=== PATIENT | male | born 1975 | race Caucasian/White ===

== ENCOUNTER 2019-01-05 21:00 | Inpatient (IN) | payer OTHER ==
[~2019-01-05] VITALS: Ht 177.8 cm; Wt 80.5 kg
[2019-01-05] MEDS ORDERED: SODIUM CHLORIDE 0.9% 1,000 ML IV ONE (21:24)
[2019-01-05] MEDS ORDERED: MORPHINE SULFATE 4 MG/ML CPJ (NOT FOR IM USE) IV NR (22:02)
[2019-01-05] MEDS ORDERED: ONDANSETRON HCL 4MG/2ML INJ IV NR (22:02)
[2019-01-05] MEDS: SODIUM CHLORIDE 0.9% 1,000 ML IV NR ×2 (22:02→23:03)
[2019-01-05] MEDS ORDERED: DIAZEPAM 5 MG/ML 2ML CPJ IV NR (22:15)
[2019-01-05 22:19] LABS: BASOPHILS % 0.6 % (0.0-2.0); EOSINOPHILS % 2.2 % (0.0-5.0); HEMATOCRIT. 46.8 % (42.0-52.0); LYMPHOCYTES % 42.5 % (20.0-50.0); MEAN CORPUSCULAR HEMOGLOBIN 31.6 pg (28.0-32.0); MEAN CORPUSCULAR VOLUME 92.1 fL (80.0-94.0); MEAN PLATELET VOLUME 7.5 fl (7.4-10.4); MONOCYTES % 10.8 % (2.0-8.0); NEUTROPHILS % 43.9 % (40.0-76.0); PLATELET 172 x1000/uL (130-400); RED BLOOD CELL COUNT 5.08 mill/uL (4.7-6.1); RED CELL DISTRIBUTION WIDTH 15.1 % (11.6-14.6)
[2019-01-05 22:24] LABS: CHLORIDE 99 mEq/L (98-107)
[2019-01-05 22:28] LABS: ETHANOL BLOOD 247 mg/dL
[2019-01-06] MEDS ORDERED: MORPHINE SULFATE 4 MG/ML CPJ (NOT FOR IM USE) IV ONE (00:30)
[2019-01-06] MEDS ORDERED: DIAZEPAM 5 MG/ML 2ML CPJ IV ONE (00:30)
[2019-01-06] MEDS ORDERED: IOHEXOL-300 100 ML BOTTLE ONE (01:59)
[2019-01-06] MEDS ORDERED: POTASSIUM CHLORIDE 20MEQ TABLET SR PO ONE (04:30)
[2019-01-06 04:40] VITALS: BP 95/73
[2019-01-06] MEDS ORDERED: XAR15 MT (05:14)
[2019-01-06] MEDS ORDERED: GABA-531 PO (05:14)
[2019-01-06] MEDS: CHLORDIAZEPOXIDE 25MG CAPSULE PO SCH ×3 (07:00→21:09)
[2019-01-06] MEDS ORDERED: OMEPRAZOLE 20MG CAPSULE EXTENDED RELEASE PO SCH (07:20)
[2019-01-06 07:51] LABS: BASOPHILS % 0.3 % (0.0-2.0); EOSINOPHILS % 2.2 % (0.0-5.0); HEMATOCRIT. 43.6 % (42.0-52.0); HEMOGLOBIN. 14.8 g/dL (14.0-18.0); LYMPHOCYTES % 25.3 % (20.0-50.0); MEAN CORPUSCULAR HEMOGLOBIN 31.3 pg (28.0-32.0); MEAN CORPUSCULAR VOLUME 92.1 fL (80.0-94.0); MEAN PLATELET VOLUME 7.5 fl (7.4-10.4); MONOCYTES % 8.7 % (2.0-8.0); NEUTROPHILS % 63.5 % (40.0-76.0); PLATELET 178 x1000/uL (130-400); RED BLOOD CELL COUNT 4.74 mill/uL (4.7-6.1); RED CELL DISTRIBUTION WIDTH 14.9 % (11.6-14.6)
[2019-01-06 08:00] VITALS: BP 106/56
[2019-01-06 08:04] LABS: CHLORIDE 104 mEq/L (98-107)
[2019-01-06 08:12] LABS: LDL CHOLESTEROL 112 mg/dL (5-100)
[2019-01-06 08:13] LABS: CREATINE KINASE 385 IU/L (39-308)
[2019-01-06 08:14] LABS: CREATINE KINASE MB FRACTION 2.7 ng/mL (0.5-3.6); HDL CHOLESTEROL 48 mg/dL (40-59)
[2019-01-06 08:31] LABS: HEPATITIS B SURFACE ANTIGEN NEGATIVE
[2019-01-06] MEDS ORDERED: FOLIC ACID 1 MG, THIAMINE HCL 100 MG, MVI, ADULT NO.1 10 ML in DEXTROSE 5% WATER 1,000 ML IV ONE ×4 (09:00)
[2019-01-06 09:01] LABS: HEPATITIS A AB IGM NEGATIVE (NEGATIVE)
[2019-01-06] MEDS: THIAMINE HCL 100MG TABLET PO SCH (09:07)
[2019-01-06] MEDS: FOLIC ACID 1MG TABLET PO SCH (09:07)
[2019-01-06] MEDS: MULTIVITAMINS,THER W-MINERALS TABLET PO SCH (09:07)
[2019-01-06] MEDS: NICOTINE 14MG PATCH TD SCH (09:08)
[2019-01-06] MEDS: SODIUM CHLORIDE 0.9% 1,000 ML IV NR (09:09)
[2019-01-06] MEDS: MORPHINE SULFATE 2 MG/ML CPJ (NOT FOR IM USE) IV PRN ×3 (09:09→17:57)
[2019-01-06] MEDS: SODIUM CHLORIDE 0.9% 1,000 ML IV SCH ×2 (10:25→21:19)
[2019-01-06 12:00] VITALS: BP 124/72
[2019-01-06] MEDS ORDERED: POTASSIUM CHLORIDE 20MEQ TABLET SR PO SCH (13:15)
[2019-01-06] MEDS ORDERED: ACETAMINOPHEN 325MG TABLET PO PRN (13:15)
[2019-01-06] MEDS ORDERED: CLONIDINE 0.1MG TABLET PO PRN (13:15)
[2019-01-06] MEDS ORDERED: LORAZEPAM 0.5MG TABLET PO PRN (13:15)
[2019-01-06] MEDS ORDERED: HYDROCODONE/ACETAMINOPHEN 5/325MG TABLET PO PRN (13:15)
[2019-01-06] MEDS ORDERED: IPRATROPIUM/ALBUTEROL 0.5-3(2.5)MG/3ML NEB HHN PRN (13:15)
[2019-01-06 16:00] VITALS: BP 116/76
[2019-01-06] MEDS: SUCRALFATE 1G TABLET PO SCH ×2 (16:35→21:09)
[2019-01-06 17:12] LABS: INR 1.1
[2019-01-06 20:22] VITALS: BP 131/89
[2019-01-06] MEDS: LORAZEPAM 2MG/ML CPJ IV PRN (21:09)
[2019-01-06] MEDS: PANTOPRAZOLE 40MG DR TABLET PO SCH (21:09)
[2019-01-07 00:19] VITALS: BP 144/69
[2019-01-07 04:32] VITALS: BP 110/69
[2019-01-07] MEDS: MORPHINE SULFATE 2 MG/ML CPJ (NOT FOR IM USE) IV PRN ×4 (05:39→20:47)
[2019-01-07 06:07] LABS: BASOPHILS % 0.4 % (0.0-2.0); EOSINOPHILS % 3.4 % (0.0-5.0); HEMOGLOBIN. 14.6 g/dL (14.0-18.0); LYMPHOCYTES % 24.3 % (20.0-50.0); MEAN CORPUSCULAR HEMOGLOBIN 31.3 pg (28.0-32.0); MEAN PLATELET VOLUME 7.5 fl (7.4-10.4); MONOCYTES % 10.3 % (2.0-8.0); NEUTROPHILS % 61.6 % (40.0-76.0); PLATELET 149 x1000/uL (130-400); RED BLOOD CELL COUNT 4.68 mill/uL (4.7-6.1)
[2019-01-07 06:15] LABS: CHLORIDE 103 mEq/L (98-107)
[2019-01-07] MEDS: PANTOPRAZOLE 40MG DR TABLET PO SCH ×2 (06:37→21:48)
[2019-01-07] MEDS: SUCRALFATE 1G TABLET PO SCH ×4 (06:37→21:47)
[2019-01-07] MEDS: CHLORDIAZEPOXIDE 25MG CAPSULE PO SCH ×3 (06:37→21:47)
[2019-01-07 08:00] VITALS: BP 123/74
[2019-01-07] MEDS: FOLIC ACID 1MG TABLET PO SCH (08:08)
[2019-01-07] MEDS: THIAMINE HCL 100MG TABLET PO SCH (08:09)
[2019-01-07] MEDS: SODIUM CHLORIDE 0.9% 1,000 ML IV SCH ×2 (08:09→21:55)
[2019-01-07] MEDS: NICOTINE 14MG PATCH TD SCH (08:09)
[2019-01-07] MEDS: MULTIVITAMINS,THER W-MINERALS TABLET PO SCH (08:09)
[2019-01-07 12:00] VITALS: BP 127/77
[2019-01-07] MEDS ORDERED: POTASSIUM CHLORIDE 20MEQ TABLET SR PO ONE (12:45)
[2019-01-07 13:06] LABS: HIV SCREEN 4G Non Reactive (Non Reactive)
[2019-01-07] MEDS: LORAZEPAM 2MG/ML CPJ IV PRN ×3 (13:17→23:19)
[2019-01-07 16:00] VITALS: BP 132/82
[2019-01-07 20:10] VITALS: BP 131/82
[2019-01-07] MEDS ORDERED: QUETIAPINE FUMARATE 25MG TABLET PO SCH (21:00)
[2019-01-08 00:36] VITALS: BP 126/96
[2019-01-08] MEDS: MORPHINE SULFATE 2 MG/ML CPJ (NOT FOR IM USE) IV PRN ×5 (01:55→22:35)
[2019-01-08 04:00] VITALS: BP 109/70
[2019-01-08] MEDS: CHLORDIAZEPOXIDE 25MG CAPSULE PO SCH ×3 (06:28→21:42)
[2019-01-08] MEDS: SUCRALFATE 1G TABLET PO SCH ×4 (06:28→21:18)
[2019-01-08] MEDS: SODIUM CHLORIDE 0.9% 1,000 ML IV SCH ×3 (06:30→21:19)
[2019-01-08 07:05] LABS: CHLORIDE 108 mEq/L (98-107)
[2019-01-08 07:09] LABS: BASOPHILS % 0.5 % (0.0-2.0); EOSINOPHILS % 3.7 % (0.0-5.0); HEMATOCRIT. 42.3 % (42.0-52.0); HEMOGLOBIN. 14.1 g/dL (14.0-18.0); LYMPHOCYTES % 28.3 % (20.0-50.0); MEAN CORPUSCULAR VOLUME 92.7 fL (80.0-94.0); MEAN PLATELET VOLUME 7.9 fl (7.4-10.4); MONOCYTES % 8.9 % (2.0-8.0); NEUTROPHILS % 58.6 % (40.0-76.0); PLATELET 150 x1000/uL (130-400); RED BLOOD CELL COUNT 4.56 mill/uL (4.7-6.1); RED CELL DISTRIBUTION WIDTH 15.2 % (11.6-14.6)
[2019-01-08 08:00] VITALS: BP 124/87
[2019-01-08] MEDS: FOLIC ACID 1MG TABLET PO SCH (08:31)
[2019-01-08] MEDS: THIAMINE HCL 100MG TABLET PO SCH (08:31)
[2019-01-08] MEDS: MULTIVITAMINS,THER W-MINERALS TABLET PO SCH (08:31)
[2019-01-08] MEDS: PANTOPRAZOLE 40MG DR TABLET PO SCH ×2 (08:31→16:27)
[2019-01-08] MEDS: NICOTINE 14MG PATCH TD SCH (08:32)
[2019-01-08] MEDS ORDERED: POTASSIUM CHLORIDE 20MEQ/PACKET PO SCH (09:30)
[2019-01-08] MEDS: LORAZEPAM 2MG/ML CPJ IV PRN ×3 (10:12→21:18)
[2019-01-08 12:00] VITALS: BP 133/89
[2019-01-08] MEDS: ONDANSETRON HCL 4MG/2ML INJ IV PRN ×2 (12:25→22:35)
[2019-01-08 16:00] VITALS: BP 123/85
[2019-01-08] MEDS ORDERED: SUCRALFATE 1 G/10 ML UDC PO SCH (17:20)
[2019-01-08 20:00] VITALS: BP 122/81
[2019-01-09] VITALS: BP 130/89
[2019-01-09] MEDS: HYDROCODONE/APAP 7.5/325MG 1 TAB TABLET PO PRN (01:36)
[2019-01-09] MEDS: LORAZEPAM 2MG/ML CPJ IV PRN ×3 (02:04→21:30)
[2019-01-09 04:00] VITALS: BP 122/92
[2019-01-09] MEDS: CHLORDIAZEPOXIDE 25MG CAPSULE PO SCH ×3 (05:19→21:27)
[2019-01-09] MEDS: ONDANSETRON HCL 4MG/2ML INJ IV PRN (06:07)
[2019-01-09] MEDS: MORPHINE SULFATE 2 MG/ML CPJ (NOT FOR IM USE) IV PRN ×4 (06:08→17:53)
[2019-01-09] MEDS: SUCRALFATE 1G TABLET PO SCH ×4 (06:21→21:27)
[2019-01-09 06:53] LABS: BASOPHILS % 0.4 % (0.0-2.0); EOSINOPHILS % 3.7 % (0.0-5.0); HEMATOCRIT. 41.2 % (42.0-52.0); HEMOGLOBIN. 13.9 g/dL (14.0-18.0); LYMPHOCYTES % 33.8 % (20.0-50.0); MEAN CORPUSCULAR HEMOGLOBIN 31.4 pg (28.0-32.0); MEAN CORPUSCULAR VOLUME 93.4 fL (80.0-94.0); MEAN PLATELET VOLUME 7.8 fl (7.4-10.4); MONOCYTES % 11.4 % (2.0-8.0); NEUTROPHILS % 50.7 % (40.0-76.0); PLATELET 147 x1000/uL (130-400); RED BLOOD CELL COUNT 4.42 mill/uL (4.7-6.1); RED CELL DISTRIBUTION WIDTH 15.2 % (11.6-14.6)
[2019-01-09 07:12] LABS: CHLORIDE 107 mEq/L (98-107)
[2019-01-09 08:00] VITALS: BP 149/104
[2019-01-09] MEDS: MULTIVITAMINS,THER W-MINERALS TABLET PO SCH (08:54)
[2019-01-09] MEDS: PANTOPRAZOLE 40MG DR TABLET PO SCH ×2 (08:54→17:43)
[2019-01-09] MEDS: NICOTINE 14MG PATCH TD SCH (08:54)
[2019-01-09] MEDS: THIAMINE HCL 100MG TABLET PO SCH (08:55)
[2019-01-09] MEDS: FOLIC ACID 1MG TABLET PO SCH (08:55)
[2019-01-09] MEDS: SODIUM CHLORIDE 0.9% 1,000 ML IV SCH ×2 (08:55→17:30)
[2019-01-09] MEDS ORDERED: POTASSIUM CHLORIDE INJ 40 MEQ in DEXT 5% WATER 250 ML IV NR (11:00)
[2019-01-09 12:00] VITALS: BP 124/82
[2019-01-09 16:00] VITALS: BP 117/78
[2019-01-09 20:00] VITALS: BP 125/82
[2019-01-10] VITALS: BP 118/79
[2019-01-10] MEDS: MORPHINE SULFATE 2 MG/ML CPJ (NOT FOR IM USE) IV PRN ×5 (00:27→20:05)
[2019-01-10] MEDS: LORAZEPAM 2MG/ML CPJ IV PRN ×3 (02:18→22:30)
[2019-01-10] MEDS: SODIUM CHLORIDE 0.9% 1,000 ML IV SCH ×3 (02:36→20:04)
[2019-01-10 04:00] VITALS: BP 134/91
[2019-01-10] MEDS ORDERED: LACTULOSE 20G/30ML UDC PO PRN (05:00)
[2019-01-10] MEDS: CHLORDIAZEPOXIDE 25MG CAPSULE PO SCH ×3 (06:04→20:04)
[2019-01-10] MEDS: SUCRALFATE 1G TABLET PO SCH ×4 (06:32→20:04)
[2019-01-10 06:42] LABS: CHLORIDE 108 mEq/L (98-107)
[2019-01-10 06:43] LABS: BASOPHILS % 0.5 % (0.0-2.0); EOSINOPHILS % 3.7 % (0.0-5.0); HEMATOCRIT. 43.7 % (42.0-52.0); HEMOGLOBIN. 14.7 g/dL (14.0-18.0); LYMPHOCYTES % 26.5 % (20.0-50.0); MEAN CORPUSCULAR HEMOGLOBIN 31.4 pg (28.0-32.0); MEAN CORPUSCULAR VOLUME 93.2 fL (80.0-94.0); MEAN PLATELET VOLUME 8.1 fl (7.4-10.4); MONOCYTES % 9.5 % (2.0-8.0); NEUTROPHILS % 59.8 % (40.0-76.0); PLATELET 152 x1000/uL (130-400); RED BLOOD CELL COUNT 4.68 mill/uL (4.7-6.1); RED CELL DISTRIBUTION WIDTH 15.4 % (11.6-14.6)
[2019-01-10 08:00] VITALS: BP 95/47
[2019-01-10] MEDS: PANTOPRAZOLE 40MG DR TABLET PO SCH ×2 (08:30→16:21)
[2019-01-10] MEDS: THIAMINE HCL 100MG TABLET PO SCH (08:30)
[2019-01-10] MEDS: MULTIVITAMINS,THER W-MINERALS TABLET PO SCH (08:30)
[2019-01-10] MEDS: FOLIC ACID 1MG TABLET PO SCH (08:30)
[2019-01-10] MEDS: NICOTINE 14MG PATCH TD SCH (08:31)
[2019-01-10 12:00] VITALS: BP 132/83
[2019-01-10] MEDS: HYDROCODONE/APAP 7.5/325MG 1 TAB TABLET PO PRN (15:12)
[2019-01-10 16:00] VITALS: BP 112/77
[2019-01-10 20:00] VITALS: BP 122/82
[2019-01-11] VITALS: BP 129/86
[2019-01-11] MEDS: MORPHINE SULFATE 2 MG/ML CPJ (NOT FOR IM USE) IV PRN ×2 (01:14→06:07)
[2019-01-11 04:00] VITALS: BP 107/79
[2019-01-11] MEDS: SODIUM CHLORIDE 0.9% 1,000 ML IV SCH (05:54)
[2019-01-11] MEDS: SUCRALFATE 1G TABLET PO SCH ×2 (06:06→13:13)
[2019-01-11] MEDS: CHLORDIAZEPOXIDE 25MG CAPSULE PO SCH (06:06)
[2019-01-11 07:59] LABS: BASOPHILS % 0.8 % (0.0-2.0); EOSINOPHILS % 3.8 % (0.0-5.0); HEMATOCRIT. 46.1 % (42.0-52.0); HEMOGLOBIN. 15.4 g/dL (14.0-18.0); MEAN CORPUSCULAR HEMOGLOBIN 31.6 pg (28.0-32.0); MEAN CORPUSCULAR VOLUME 94.5 fL (80.0-94.0); MEAN PLATELET VOLUME 8.1 fl (7.4-10.4); MONOCYTES % 11.6 % (2.0-8.0); NEUTROPHILS % 57.8 % (40.0-76.0); PLATELET 151 x1000/uL (130-400); RED BLOOD CELL COUNT 4.88 mill/uL (4.7-6.1); RED CELL DISTRIBUTION WIDTH 16.2 % (11.6-14.6)
[2019-01-11 08:00] VITALS: BP 132/83
[2019-01-11 08:07] LABS: CHLORIDE 110 mEq/L (98-107)
[2019-01-11] MEDS: FOLIC ACID 1MG TABLET PO SCH (09:27)
[2019-01-11] MEDS: HYDROCODONE/APAP 7.5/325MG 1 TAB TABLET PO PRN (09:27)
[2019-01-11] MEDS: THIAMINE HCL 100MG TABLET PO SCH (09:27)
[2019-01-11] MEDS: MULTIVITAMINS,THER W-MINERALS TABLET PO SCH (09:27)
[2019-01-11] MEDS: PANTOPRAZOLE 40MG DR TABLET PO SCH (09:28)
[2019-01-11] MEDS: NICOTINE 14MG PATCH TD SCH (09:28)
[2019-01-11 12:00] VITALS: BP 132/76
[2019-01-11 12:37] VITALS: BP 132/83
== END 2019-01-11 14:39 | disposition home or self-care (01) | DRG 241 ==
LOC: ER 21:00 → 6WST 01-06 02:35 → EDBEDREQDT 01-06 02:40 → EDBEDREQTM 01-06 02:40 → EDBEDREQ 01-06 02:40 → ENRESERV 01-06 03:30
PROVIDERS: ADMIT Internal Medicine; ATTEND Internal Medicine
DX: K29.71 Gastritis, unspecified, with bleeding (principal); M62.82 Rhabdomyolysis; E87.5 Hyperkalemia; R16.0 Hepatomegaly, not elsewhere classified; N28.1 Cyst of kidney, acquired; K76.0 Fatty (change of) liver, not elsewhere classified; F10.229 Alcohol dependence with intoxication, unspecified; K27.4 Chronic or unspecified peptic ulcer, site unspecified, with hemorrhage; F10.239 Alcohol dependence with withdrawal, unspecified; E78.1 Pure hyperglyceridemia; E87.6 Hypokalemia; E78.5 Hyperlipidemia, unspecified; M48.00 Spinal stenosis, site unspecified; M51.37 Other intervertebral disc degeneration, lumbosacral region; N40.0 Benign prostatic hyperplasia without lower urinary tract symptoms; Z86.711 Personal history of pulmonary embolism; F17.210 Nicotine dependence, cigarettes, uncomplicated; R74.0 Nonspecific elevation of levels of transaminase and lactic acid dehydrogenase [LDH]; Z79.01 Long term (current) use of anticoagulants
CPT/HCPCS: 36415; 71045; 74177; 80048; 80061; 80076; 80320; 82270; 82550; 82553; 83735; 84484; 86705; 86709; 86803; 87340; 87389; 93970; 96374; 99285; C1893; J2060; J2270; J2405; J3411; J3480; J3490; J7030; J7060; J7070; Q9967; G0480